=== PATIENT | female | born 1985 | race Hispanic/Latino ===

== ENCOUNTER 2017-02-08 13:42 | Outpatient (CLI) | payer MEDICAID | END 2017-02-08 17:01 | disposition home or self-care (01) | LOC: LAB 13:42 → TRG 16:26 → LAB 17:01 | PROVIDERS: ATTEND Obstetrics & Gynecology | DX: O36.0130 Maternal care for anti-D [Rh] antibodies, third trimester, not applicable or unspecified (principal); Z3A.33 33 weeks gestation of pregnancy | CPT/HCPCS: 86850; 86900; 86901; 96372; J2790 ==

== ENCOUNTER 2017-03-22 05:54 | Inpatient (IN) | payer MEDICAID ==
[2017-03-22] MEDS ORDERED: LACTATED RINGERS 2,000 ML ONE (06:12)
[2017-03-22] MEDS ORDERED: BICITRA PO ONE (06:36)
[2017-03-22] MEDS ORDERED: PEPCID IV ONE (06:36)
[2017-03-22] MEDS ORDERED: REGLAN IV ONE (06:36)
[2017-03-22 06:49] LABS: Hematocrit 37.7 % (30.3-42.9); Hemoglobin 13.1 gm/dl (10.1-14.3); Mean Corpuscular HGB Conc 35 % (30-34); Mean Corpuscular Hemoglobin 30 pg (28-32); Mean Corpuscular Volume 87 fl (79-97); Platelet Count 204 K/mm3 (140-440); Red Blood Count 4.33 M/mm3 (3.65-5.03); Red Cell Distribution Width 13.8 % (13.2-15.2); White Blood Count 11.3 K/mm3 (4.5-11.0)
[2017-03-22] MEDS ORDERED: LACTATED RINGERS 1,000 ML IV SCH (07:00)
[2017-03-22] MEDS ORDERED: PITOCin/NS 20 UNIT/1000ML DRIP 20 UNITS/1,000 ML BAG IV SCH ×2 (07:00→14:12)
[2017-03-22] MEDS ORDERED: ANCEF/STERILE WATER 2 GM/20 ML 2 GM/20 ML SYRINGE IV NR (07:00)
--- NOTE | 2017-03-22 07:16 | History and Physical Report ---
History of Present Illness Date of examination: 03/21/17 Date of admission: 03/22/17 05:54 Chief complaint: I'm here for a repeat History of present illness: Patient is a 31 year old who presents L&D for elective repeat . She has had an uncomplicated course. She entered care in the first trimester. Past History Past Medical History: no pertinent history Past Surgical History: section Family/Genetic History: none Social history: no significant social history, single - Obstetrical History Expected Date of Delivery: 03/28/17 Actual Gestation: 39 Week(s) 1 Day(s) : 2 Para: 1 Medications and Allergies Allergies Allergy/AdvReac Type Severity Reaction Status Date / Time No Known Allergies Allergy Verified 09/10/13 18:20 Home Medications Medication Instructions Recorded Confirmed Last Taken Type No Known Home Medications [No 09/10/15 09/10/15 Unknown History Reported Home Medications] Active Meds: Active Medications Cefazolin Sodium (Ancef/Sterile Water 2 Gm/20 Ml) 2 gm in 20 mls @ 80 mls/hr IV PREOP NR PRN Reason: Protocol Stop: 03/22/17 07:14 Lactated Ringer's (Lactated Ringers) 1,000 mls @ 2,250 mls/hr IV PREOP MANNY Stop: 03/23/17 07:27 Last Admin: 03/22/17 06:37 Dose: 2,250 mls/hr Oxytocin/Sodium Chloride (Pitocin/Ns 20 Unit/1000ml Drip) 20 units in 1,000 mls @ 0 mls/hr IV TITR MANNY PRN Reason: As Directed Review of Systems All systems: negative Genitourinary: pelvic pain - Vital Signs Vital signs: Vital Signs Pulse Pulse Ox 88 94 03/22/17 06:49 03/22/17 06:49 Temp Pulse Resp BP Pulse Ox 98.2 F 84 16 117/70 95 03/22/17 06:52 03/22/17 07:14 03/22/17 06:52 03/22/17 06:50 03/22/17 07:14 - Physical Exam Breasts: Positive: deferred Cardiovascular: Regular rate, Normal S1, Normal S2 Lungs: Positive: Clear to auscultation, Normal air movement Abdomen: Positive: normal appearance, soft, normal bowel sounds Genitourinary (Female): Positive: normal external genitalia, normal perenium Vagina: Positive: normal moisture Uterus: Positive: normal size, normal contour Extremities: Positive: normal Deep Tendon Reflex Grade: Normal +2 - Obstetrical FHR: auscultation normal Cervical Dilatation: 0 Uterine Contraction Pattern: Absent Results Result Diagrams: 03/22/17 06:28 Abnormal lab results 03/22/17 Range/Units 06:28 WBC 11.3 H (4.5-11.0) K/mm3 MCHC 35 H (30-34) % All other labs normal. Assessment and Plan IUP at 39.1 weeks who presents for elective repeat . Will admit to L& D. Draw labs. Consents signed and placed on chart.
[2017-03-22] MEDS ORDERED: DILAUDID IV PRN (07:20)
[2017-03-22] MEDS ORDERED: BENADRYL IV PRN (07:20)
[2017-03-22] MEDS ORDERED: PHENERGAN PR PRN (07:20)
[2017-03-22] MEDS ORDERED: NARCAN 0.4 MG/1 ML IV PRN ×2 (07:20→14:12)
[2017-03-22] MEDS ORDERED: ZOFRAN IV PRN ×2 (07:20→14:12)
--- NOTE | 2017-03-22 07:20 | Anesthesia Consultation ---
Anesthesia Consult and Med Hx Date of service: 03/22/17 - Airway Anesthetic Teeth Evaluation: Good ROM Head & Neck: Adequate Mental/Hyoid Distance: Adequate Mallampati Class: Class II Intubation Access Assessment: Probably Good - Pre-Operative Health Status ASA Pre-Surgery Classification: ASA2 Proposed Anesthetic Plan: Spinal - Pulmonary Hx Asthma: No COPD: No Hx Pneumonia: No - Cardiovascular System Hx Hypertension: No Hx Heart Attack/AMI: No Hx Valvular Heart Disease: No - Central Nervous System Hx Seizures: No CVA: No Hx Psychiatric Problems: No - Endocrine Hx Renal Disease: No Hx End Stage Renal Disease: No Hx Liver Disease: No Hx Hypothyroidism: No Hx Hyperthyroidism: No - Hematic Hx Anemia: No Hx Sickle Cell Disease: No - Other Systems Hx Alcohol Use: No Hx Substance Use: No Hx Cancer: No
--- NOTE | 2017-03-22 07:20 | Anesthesia Day of Surgery ---
Anesthesia Day of Surgery - Day of Surgery Patient Examined: Yes Patient H&P Reviewed: Yes Patient is NPO: Yes
[2017-03-22] MEDS ORDERED: TORADOL IV PRN ×2 (07:21→14:12)
[2017-03-22] MEDS ORDERED: SODIUM CHLORIDE FLUSH SYRINGE 10 ML IV NR (08:00)
[2017-03-22 08:13] LABS: Basophils % (Manual) 0 % (0.0-1.8); Blastocytes % (Manual) 0 %
[2017-03-22 08:14] LABS: Diff Status Complete; Eosinophils % (Manual) 0 % (0.0-4.3); RBC Morphology Normal
[2017-03-22] MEDS ORDERED: MORPHINE ONE (09:57)
[2017-03-22] MEDS ORDERED: WATER FOR IRRIG STERILE IR ONE (10:05)
[2017-03-22] MEDS ORDERED: NACL 0.9% IR ONE (10:05)
[2017-03-22] MEDS ORDERED: ANCEF/STERILE WATER 2 GM/20 ML IV ONE (10:07)
[2017-03-22] MEDS ORDERED: DIPRIVAN 10 MG/ML IV ONE (10:34)
[2017-03-22] MEDS ORDERED: TORADOL ONE (11:01)
--- NOTE | 2017-03-22 11:40 | Procedure Note ---
OB Delivery Note - Delivery Date of Delivery: 03/22/17 Surgeon: TUTU CARLISLE Estimated blood loss: 500cc - Section Preop diagnosis: repeat Postop diagnosis: same section procedure: repeat low transverse Disposition: PACU Complications: none - Infant A at 1 minute: 9 at 5 minutes: 9 Gender: Female (6 pounds 6 ounces 2895 grams)
[2017-03-22] MEDS ORDERED: MORPHINE IV PRN (14:12)
[2017-03-22] MEDS ORDERED: MILK OF MAGNESIA PO PRN (14:12)
[2017-03-22] MEDS ORDERED: SODIUM CHLORIDE FLUSH SYRINGE 10 ML IV SCH (14:12)
[2017-03-22] MEDS ORDERED: TUCKS PAD TP PRN (14:12)
[2017-03-22] MEDS ORDERED: LANSINOH TP PRN (14:12)
[2017-03-22] MEDS ORDERED: MYLICON PO PRN (14:12)
--- NOTE | 2017-03-22 15:45 | Operative Report ---
Operative Report Operative Report: The operative report for patient Rhonda Rodriguez Date of service 03/22/2017 Preoperative diagnosis: Intrauterine at 39 weeks 2. Previous Postoperative diagnosis: Same Procedure: Repeat low transverse section Surgeon: Dr. Hermelinda Soto EBL: 500 mL clear Urine output: 1 50 mL IV fluids: 1200 mL Findings: Viable female in the vertex occiput anterior position. Weight 6 lbs. 6 oz. 2895 g, Apgars 8 and 9 Otherwise normal pelvic anatomy Specimens: None Complications: None Procedure: The patient was admitted to the OR with IV running and in place. She was properly identified as herself. Spinal anesthesia was placed without difficulty She was placed in the dorsal supine position with a leftward tilt. A Tellez catheter had been inserted prior to coming to the OR. She was then prepped and draped in the normal sterile fashion. An Allis test was used to confirm adequate anesthesia. Once confirmed, the incision was made with the scalpel and carried to the underlying fascia using the scalpel and the Bovie. The fascia was incised in the midline and incision was extended bilaterally using the curved Gonzalez scissors. The fascia was then dissected from the underlying rectus muscles in a series of sharp and blunt dissection using the Gonzalez scissors. Muscles were in the in the midline sharply using Metzenbaum scissors and the peritoneum was entered into bluntly using the surgeon's fingers. A bladder blade was then placed into the incision to protect the bladder. Following this the bladder flap was created. Hysterotomy incision was then made in the scalpel. Upon uterine entry, the amniotic sac was ruptured for clear fluid. The was then delivered in the occiput anterior] position. Her mouth and nose were suctioned on the field. The cord was clamped and cut and she was handed to the waiting NICU personnel. The uterus was then exteriorized and cleared of all clots and debris. The hysterotomy incision was then closed in a running locked fashion using 0 Vicryl. The abdomen was then copiously irrigated with warm normal saline. Following this the uterus was replaced into the abdominal cavity. At this point the muscles were reapproximated in the midline using individual sutures of 0 Vicryl. Following this the fascia was closed in a running fashion using 0 Vicryl. Tissue was then copiously irrigated. The patient became agitated after being given some pain medicine, she started moving on the operating table. To facilitate the end of the case the decision was made to close the skin with braxton The sponge lap needle and instrument counts were correct 2. The patient tolerated the procedure well. She was taken to recovery in stable condition.
[2017-03-22] MEDS ORDERED: D5LR 1,000 ML IV SCH (21:00)
[2017-03-23] MEDS: PERCOCET 5/325 PO PRN ×4 (00:06→15:56)
[2017-03-23 00:21] LABS: Hematocrit 33.5 % (30.3-42.9); Hemoglobin 11.6 gm/dl (10.1-14.3)
[2017-03-23] MEDS ORDERED: PRENATAL VITAMIN PO SCH (10:00)
--- NOTE | 2017-03-23 11:52 | Progress Note ---
Subjective Date of service: 03/23/17 Interval history: No anesthetic related complaints. Objective - Constitutional Vitals: Vital Signs - 12hr 03/23/17 03/23/17 03/23/17 00:06 01:06 04:58 Temperature 98.4 F Pulse Rate 71 Respiratory 20 18 18 Rate Blood Pressure 101/54 O2 Sat by Pulse 97 Oximetry 03/23/17 03/23/17 03/23/17 05:04 06:04 08:18 Temperature 98.4 F Pulse Rate 71 Respiratory 20 18 18 Rate Blood Pressure 104/52 O2 Sat by Pulse 97 Oximetry - Labs CBC & Chem 7: 03/22/17 23:39
--- NOTE | 2017-03-23 12:29 | Progress Note ---
Assessment and Plan - Patient Problems (1) delivery, delivered, current hospitalization Current Visit: No Status: Acute Plan to address problem: Patient doing well Routine postoperative care Subjective - Subjective Date of service: 03/23/17 Interval history: Patient is doing well. The patient was found ambulating in the hallway without difficulty. She is tolerating a regular diet and her pain is well-controlled. The patient reported concern that she had braxton placed. Explained that is a routine closure for a delivery. Will remove dressing tomorrow. Patient reports: appetite normal, voiding normally, pain well controlled Jaffrey: doing well Objective - Vital Signs Latest vital signs: Vital Signs Temp Pulse Resp BP BP Pulse Ox 03/23/17 08:18 98.4 F 71 18 104/52 97 03/23/17 06:04 18 03/23/17 05:04 20 03/23/17 04:58 98.4 F 71 18 101/54 97 03/23/17 01:06 18 03/23/17 00:06 20 03/22/17 23:43 98.5 F 73 18 97/59 96 03/22/17 20:36 98.1 F 72 18 93/57 96 03/22/17 17:10 97.9 F 72 18 98/58 03/22/17 15:55 11 L 03/22/17 12:35 97.4 F L 66 18 96/64 Intake and Output 03/22/17 03/23/17 03/23/17 22:59 06:59 14:59 Intake Total 120 600 500 Output Total 600 4000 Balance -480 -3400 500 Intake: Oral 120 600 380 Intake, Free Water 120 Output: Urine 600 4000 Indwelling Catheter 600 3500 Void 500 Other: Intake, Other Source Saline Solution Total, Intake Amount 120 600 380 Total, Output Amount 600 4000 - Exam Abdomen: Present: normal appearance, soft Uterus: Present: normal, firm Incision: Present: dressed
[2017-03-23 18:44] VITALS: BP 115/56
== END 2017-03-23 18:50 | disposition home or self-care (01) | DRG 766 ==
LOC: APU 05:54 → OB 12:52
PROVIDERS: ADMIT Obstetrics & Gynecology; ATTEND Obstetrics & Gynecology
PROC: 10D00Z1 Extraction of Products of Conception, Low, Open Approach (ICD-10-PCS; principal; 2017-03-22)
DX: O34.211 Maternal care for low transverse scar from previous cesarean delivery (principal); Z3A.39 39 weeks gestation of pregnancy; Z37.0 Single live birth
CPT/HCPCS: 36415; 85007; 85014; 85018; 85025; 86850; 86870; 86900; 86901; J0690; J1885; J2270; J2405; J2590; J2704; J2765; J7120; J7121